=== PATIENT | male | born 1980 | race Two or more races ===

== ENCOUNTER 2020-08-01 16:56 | Emergency (ER) | payer OTHER ==
[~2020-08-01] VITALS: Ht 185.4 cm; Wt 136.1 kg
[2020-08-01 17:01] VITALS: BP 142/95
== END 2020-08-01 20:16 | disposition home or self-care (01) ==
LOC: ER 16:56
DX: S63.502A Unspecified sprain of left wrist, initial encounter (principal); Y08.89XA Assault by other specified means, initial encounter; Y93.89 Activity, other specified; Y92.89 Other specified places as the place of occurrence of the external cause; Y99.8 Other external cause status
CPT/HCPCS: 73110

== ENCOUNTER 2021-04-27 20:01 | Emergency (ER) | payer OTHER ==
[~2021-04-27] VITALS: Ht 180.3 cm; Wt 163.3 kg
[2021-04-27 23:00] VITALS: BP 161/113
[2021-04-27] MEDS ORDERED: KETOROLAC TROMETH 60MG/2ML VIAL IM ONE (23:15)
== END 2021-04-28 02:31 | disposition home or self-care (01) ==
LOC: ER 20:02
DX: S83.91XA Sprain of unspecified site of right knee, initial encounter (principal); E66.9 Obesity, unspecified; I10 Essential (primary) hypertension; G89.29 Other chronic pain; M54.9 Dorsalgia, unspecified; Z68.43 Body mass index [BMI] 50.0-59.9, adult; W07.XXXA Fall from chair, initial encounter; Y93.89 Activity, other specified; Y92.89 Other specified places as the place of occurrence of the external cause; Y99.8 Other external cause status
CPT/HCPCS: 73562; 96372; 99283; J1885

== ENCOUNTER 2023-12-16 05:44 | Emergency (ER) | payer MEDICAID, OTHER ==
[~2023-12-16] VITALS: Ht 180.3 cm; Wt 133.4 kg
[2023-12-16 07:35] VITALS: TEMP 99.2; O2SAT 99
[2023-12-16] MEDS: ONDANSETRON ODT 4 MG TAB PO ONE (08:08)
[2023-12-16 08:09] VITALS: BP 139/77; PULSE 77; RESP 19
[2023-12-16] MEDS: HYDROmorphone HCL 2 MG/ML VL/or syr IM ONE (08:09)
== END 2023-12-16 08:28 | disposition home or self-care (01) ==
LOC: ER 05:44
DX: G89.29 Other chronic pain (principal); M54.59 Other low back pain; I10 Essential (primary) hypertension; F17.210 Nicotine dependence, cigarettes, uncomplicated; F15.90 Other stimulant use, unspecified, uncomplicated; F10.90 Alcohol use, unspecified, uncomplicated; Y90.0 Blood alcohol level of less than 20 mg/100 ml
CPT/HCPCS: 96372; 99283; J1170; Q0162